=== PATIENT | female | born 1980 | race Two or more races ===

== ENCOUNTER 2023-11-04 05:22 | Emergency (ER) | payer BC, MEDICAID ==
[~2023-11-04] VITALS: Ht 160 cm; Wt 90.2 kg
[2023-11-04 05:49] VITALS: BP 115/83; PULSE 80; RESP 18; TEMP 98.3; O2SAT 99
[2023-11-04] MEDS: HYDROcodone-ACET 5/325MG TAB PO ONE (08:25)
[2023-11-04] MEDS ORDERED: NABU-72 PO (10:09)
[2023-11-04] MEDS ORDERED: PRED20TA2 PO (10:09)
[2023-11-04] MEDS ORDERED: HYDR-4902 PO (10:09)
== END 2023-11-04 10:16 | disposition home or self-care (01) ==
LOC: ER 05:22
DX: M48.061 Spinal stenosis, lumbar region without neurogenic claudication (principal); M54.59 Other low back pain; Z79.899 Other long term (current) drug therapy; W01.0XXA Fall on same level from slipping, tripping and stumbling without subsequent striking against object, initial encounter; Y93.89 Activity, other specified; Y92.89 Other specified places as the place of occurrence of the external cause; Y99.8 Other external cause status
CPT/HCPCS: 72100; 72131